=== PATIENT | female | born 1935 | race Caucasian/White ===

== ENCOUNTER → 2016-12-07 | Outpatient (REF) ==
[~2016-12-07] MED LIST: ASPIRIN 81M81 MG/TA2 PO; DITROPAN 5MG TAB5 MG PO; LOPRESSOR 225 MG/TAB PO; LOPRESSOR 550 MG/TAB PO; MIRAPEX 0.0.125 MG/T PO; NORCO 325 MG-51 TAB PO; PRINIVIL20 MG PO; ZOCOR 40MG40 MG PO
== END ==
LOC: ZLAB.WCH 18:01
DX: Z01.89 Encounter for other specified special examinations (principal)

== ENCOUNTER → 2017-06-25 | Outpatient (REF) | LOC: ZLAB.WCH 08:36 | DX: Z01.89 Encounter for other specified special examinations (principal) ==

== ENCOUNTER → 2017-09-18 | Outpatient (REF) | LOC: ZLAB.WCH 17:53 | DX: Z01.89 Encounter for other specified special examinations (principal) ==

== ENCOUNTER → 2018-04-02 | Outpatient (REF) | LOC: ZLAB.WCH 15:48 | DX: Z01.89 Encounter for other specified special examinations (principal) ==

== ENCOUNTER → 2018-04-04 | Outpatient (REF) | LOC: COL.CARD 10:11 | DX: Z01.818 Encounter for other preprocedural examination (principal) ==

== ENCOUNTER → 2018-07-17 | Outpatient (REF) | LOC: ZLAB.WCH 16:17 | DX: Z01.89 Encounter for other specified special examinations (principal) ==

== ENCOUNTER → 2018-09-12 | Outpatient (REF) ==
[2018-09-12 18:00] LABS: THYROID STIMULATING HORMONE 2.59 uIU/mL (0.465-4.680)
== END ==
LOC: ZLAB.WCH 17:16
PROVIDERS: Family Medicine
DX: Z01.89 Encounter for other specified special examinations (principal)

== ENCOUNTER 2019-11-21 21:07 | Emergency (ER) | payer MEDICARE ==
[~2019-11-21] VITALS: Ht 165.1 cm; Wt 77.3 kg
[2019-11-21 22:03] LABS: HEMATOCRIT 37.3 % (37.0-47.0); HEMOGLOBIN 11.7 g/dl (12.5-16.0); MEAN CELL VOLUME 87 fl (80.0-100.0); MEAN CORPUSCULAR HEMOGLOBIN 27 pg (27.0-31.0); MEAN CORPUSCULAR HGB CONC 31 g/dl (33.0-37.0); PLATELET COUNT 367 K/mm3 (130-400); RED BLOOD COUNT 4.28 M/mm3 (4.10-5.30); REDCELL DISTRIBUTION WIDTH-CV 15.4 % (11.5-14.5)
[2019-11-21 22:14] LABS: ALBUMIN 3.6 gm/dL (3.5-5.0); BILIRUBIN,TOTAL 0.6 mg/dL (0.0-1.0); CALCIUM 8.9 mg/dL (8.4-10.2); CREATININE, serum 0.88 (0.52-1.25); POTASSIUM 3.6 mmol/L (3.4-5.0); TOTAL PROTEIN 7.1 gm/dL (6.4-8.2)
[2019-11-21 22:27] LABS: EOSINOPHIL 1 % (0-4); LYMPHOCYTE 26 % (20.0-51.0); NEUTROPHILS 71 % (42.0-75.2); PLATELET ESTIMATE NORMAL (NORMAL)
[2019-11-21 22:28] LABS: ANISOCYTOSIS 1+
[2019-11-21] MEDS ORDERED: PREDNISONE10 MG PO (23:17)
[2019-11-21 23:32] VITALS: BP 148/74; PULSE 70; TEMP 98.2
== END 2019-11-21 23:35 | disposition home or self-care (01) ==
LOC: COL.ER 21:07
PROVIDERS: Family Medicine
DX: M54.16 Radiculopathy, lumbar region (principal); M25.551 Pain in right hip; I10 Essential (primary) hypertension; Z79.82 Long term (current) use of aspirin; W10.9XXA Fall (on) (from) unspecified stairs and steps, initial encounter
CPT/HCPCS: J7512